=== PATIENT | male | born 1990 | race Caucasian/White ===

== ENCOUNTER 2022-07-10 16:56 | Emergency (ER) | payer MEDICAID ==
[~2022-07-10] VITALS: Ht 182.9 cm; Wt 115.9 kg
[2022-07-10 17:57] VITALS: BP 135/90
== END 2022-07-10 20:18 | disposition home or self-care (01) ==
LOC: ER 16:58
DX: M79.652 Pain in left thigh (principal); S76.812A Strain of other specified muscles, fascia and tendons at thigh level, left thigh, initial encounter; X58.XXXA Exposure to other specified factors, initial encounter; Y93.89 Activity, other specified; Y92.89 Other specified places as the place of occurrence of the external cause; Y99.8 Other external cause status
CPT/HCPCS: 99282

== ENCOUNTER → 2023-09-12 | Outpatient (CLI) | payer MEDICAID | END | disposition home or self-care (01) | LOC: RAD 10:38 | PROVIDERS: ATTEND Family Medicine | DX: M54.6 Pain in thoracic spine (principal) | CPT/HCPCS: 71101; 72070 ==